=== PATIENT | male | born 1995 | race Two or more races ===

== ENCOUNTER 2018-07-21 02:53 | Emergency (ER) | payer SELFPAY ==
[2018-07-21 02:59] VITALS: TEMP 98.2; O2SAT 100
--- NOTE | 2018-07-21 03:30 | ED PDOC ---
HPI: Psych/Substance Abuse Time Seen by Provider: 07/21/18 03:14 Chief Complaint (Nursing): Alcohol Ingestion Chief Complaint (Provider): Alcohol Ingestion ED Caveat: Intoxicated History Per: EMS History/Exam Limitations: intoxication Onset/Duration Of Symptoms: Sudden Onset Current Symptoms Are (Timing): Still Present Modifying Factor(s): Alcohol Additional Complaint(s): 23 year old male arrives to ED via EMS for an evaluation of public alcohol intoxication prior to arrival. Unable to obtain further medical history secondary to clinical condition. PCP: none provided Past Medical History Reviewed: Nursing Documentation, Vital Signs, Unable To Obtain Vital Signs: Last Vital Signs Temp 98.2 F 07/21/18 02:57 Pulse 89 07/21/18 02:57 Resp 16 07/21/18 02:57 BP 137/84 07/21/18 02:57 Pulse Ox 100 07/21/18 02:57 - Family History Family History: States: Unknown Family Hx - Allergies Allergies/Adverse Reactions: Allergies Allergy/AdvReac Type Severity Reaction Status Date / Time acetaminophen [From Tylenol] Allergy ANAPHYLAXIS Verified 07/21/18 02:59 Review of Systems Review Of Systems: ROS cannot be obtained secondary to pt's inabilty to answer questions. Physical Exam - Reviewed Nursing Documentation Reviewed: Yes Vital Signs Reviewed: Yes - Physical Exam Appears: Positive for: No Acute Distress Head Exam: Positive for: ATRAUMATIC, NORMAL INSPECTION, NORMOCEPHALIC Skin: Positive for: Normal Color Eye Exam: Positive for: Normal appearance ENT: Positive for: Normal ENT Inspection Neck: Positive for: Normal, Painless ROM Cardiovascular/Chest: Positive for: Regular Rate, Rhythm Respiratory: Positive for: Normal Breath Sounds. Negative for: Respiratory Distress Gastrointestinal/Abdominal: Positive for: Normal Exam, Soft Extremity: Positive for: Normal ROM (upper/lower). Negative for: Deformity (upper/lower) Neurologic/Psych: Positive for: Gait (unsteady), Other (slurred speech; (+) AOB) - ECG O2 Sat by Pulse Oximetry: 100 (RA) Pulse Ox Interpretation: Normal Medical Decision Making Medical Decision Making: Initial Impression: 23 year old male with alcohol intoxication Initial Plan: * Accucheck * Alcohol serum * Clinical sobriety Time: 0600 --Accucheck: 90mg/dL --Alcohol: 242 mg/dL Time: 0700 --Patient signed out to Dr. Yarbrough pending clinical sobriety. Scribe Attestation: Documented by Maeve Hernandez, acting as a scribe for Pola Lal MD. Provider Scribe Attestation: All medical record entries made by the Scribe were at my direction and personally dictated by me. I have reviewed the chart and agree that the record a ccurately reflects my personal performance of the history, physical exam, medical decision making, and the department course for this patient. I have also personally directed, reviewed, and agree with the discharge instructions and disposition. Disposition - Clinical Impression Clinical Impression: Alcohol abuse with intoxication - Disposition Referrals: [facility] [Outside] Disposition Time: 07:00 Condition: FAIR Instructions: Alcohol Abuse and Alcoholism (DC) Print Language: PASHTO
--- NOTE | 2018-07-21 09:30 | ED PDOC ---
- ECG O2 Sat by Pulse Oximetry: 100 (RA) - Progress Re-evaluation Time: :29 Condition: Re-examined, Improved Medical Decision Making Medical Decision Makin:00 Patient endorsed to this provider from Dr. Lal. Pending clinical sobriety. Scribe Attestation: Documented by Josué Jovel acting as a scribe for Gregg Yarbrough MD. Provider Scribe Attestation: All medical record entries made by the Scribe were at my direction and personally dictated by me. I have reviewed the chart and agree that the record accurately reflects my personal performance of the history, physical exam, medical decision making, and the department course for this patient. I have also personally directed, reviewed, and agree with the discharge instructions and disposition. Disposition Counseled Patient/Family Regarding: Studies Performed, Diagnosis, Need For Followup - Clinical Impression Clinical Impression: Alcohol abuse with intoxication - POA Present On Arrival: None - Disposition Referrals: [facility] [Outside] Disposition: Routine/Home Disposition Time: :29 Condition: GOOD Instructions: Alcohol Abuse and Alcoholism (DC) Print Language: [id number]
[2018-07-21 10:09] VITALS: BP 129/69; PULSE 72; RESP 18
== END 2018-07-21 10:09 | disposition home or self-care (01) ==
LOC: MERGE 02:53 → H.ER 02:53
DX: F10.129 Alcohol abuse with intoxication, unspecified (principal); Y90.8 Blood alcohol level of 240 mg/100 ml or more
CPT/HCPCS: 82948; 99283; G0480